=== PATIENT | female | born 1970 | race African-American/Black ===

== ENCOUNTER 2020-08-16 15:13 | Outpatient (CLI) | payer OTHER | END 2020-08-16 15:48 | disposition home or self-care (01) | LOC: MAMO-SONO 15:13 | PROVIDERS: ATTEND Internal Medicine Endocrinology, Diabetes & Metabolism | DX: D24.1 Benign neoplasm of right breast (principal); D24.2 Benign neoplasm of left breast; Z12.31 Encounter for screening mammogram for malignant neoplasm of breast ==

== ENCOUNTER 2020-12-01 14:41 | Outpatient (CLI) | payer OTHER | END 2020-12-01 15:00 | disposition home or self-care (01) | LOC: MAMO-SONO 14:41 | DX: E04.2 Nontoxic multinodular goiter (principal); C73 Malignant neoplasm of thyroid gland; E89.0 Postprocedural hypothyroidism ==

== ENCOUNTER 2023-10-30 07:42 | Outpatient (CLI) | payer OTHER | END 2023-10-30 07:48 | disposition home or self-care (01) | LOC: SONOGRAMA 07:42 | PROVIDERS: ATTEND Internal Medicine | DX: E89.0 Postprocedural hypothyroidism (principal) ==

== ENCOUNTER 2025-04-20 07:09 | Outpatient (CLI) | payer OTHER | END 2025-04-20 07:11 | disposition home or self-care (01) | LOC: SONOGRAMA 07:09 | PROVIDERS: ATTEND Internal Medicine | DX: C73 Malignant neoplasm of thyroid gland (principal); E89.0 Postprocedural hypothyroidism ==